=== PATIENT | female | born 1985 | race Caucasian/White ===

== ENCOUNTER 2021-11-26 07:37 | Inpatient (IN) ==
[2021-11-26] MEDS ORDERED: OXYTOCIN 30 UNITS/500 ML BAG IV PRN ×2 (08:56→23:21)
[2021-11-26] MEDS ORDERED: miSOPROStoL 25 MCG TAB PV ONE (08:56)
[2021-11-26] MEDS ORDERED: LIDOCAINE 1% LOCAL 20 ML VIAL INFIL PRN (08:56)
[2021-11-26] MEDS ORDERED: LACTATED RINGER'S 1,000 ML IV PRN (08:56)
[2021-11-26 09:29] LABS: Hematocrit (blood only) 34.7 % (34.1-44.9); Hemoglobin 11.7 g/dl (12.0-16.0); Mean Corpuscular Hgb Conc 33.7 g/dL (32.0-36.0); Mean Corpuscular Volume 86.1 fL (80.0-100.0); Mean Platelet Volume 10.4 fL (9.4-12.3); Platelet Count 262 K/uL (130-400); RDW Standard Deviation 38.1 fL (36.4-46.3); Red Blood Count 4.03 M/uL (3.93-5.22); White Blood Count 7.98 K/ul (4.8-10.8)
--- NOTE | 2021-11-26 09:30 | Obstetrical Progress Note ---
Date of Service November 26, 2021 Assessment & Plan (1) Elective induction of labor planned: Plan: induction of labor at 39 weeks Elevated BMI FHR ; CAT1 Ctx ; None VE; Cl/thick/post/-3 Bedside sono'; VT Plan Cytotec x1 Admission and Anticipated Discharge Date Admission Date: November 26, 2021 Results & Data ([facility]) Vital Signs (Past 12 Hours) Vital Signs Temp Pulse Resp BP 11/26/21 07:53 92 H 121/74 11/26/21 07:52 37.1 C 103 H 20 144/90 H
[2021-11-26] MEDS ORDERED: Nursing to Pharmacy Communication SCH (10:00)
[2021-11-26] MEDS: miSOPROStoL 50 MCG TAB PO SCH ×3 (10:10→18:32)
[2021-11-26] MEDS ORDERED: miSOPROStoL 50 MCG TAB PO SCH (12:00)
[2021-11-26] MEDS ORDERED: DINOPROSTONE 10 MG INSERT PV ONE (18:30)
--- NOTE | 2021-11-26 19:45 | Labor Progress Brief Note ---
Date of Service November 26, 2021 Assessment & Plan (1) Elective induction of labor planned: Plan: Induction Day #1 2 doses of Cytotec given Pt doing well FHR; CAT1 Ctx. minimal VE 1-2/50/-3 Cervidil #1 placed Admission and Anticipated Discharge Date Admission Date: November 26, 2021 Results & Data ([facility]) Vital Signs (Past 12 Hours) Vital Signs Temp Pulse Resp BP 11/26/21 19:00 36.8 C 18 11/26/21 19:00 18 11/26/21 18:57 92 H 109/65 11/26/21 18:36 106 H 113/82 11/26/21 17:49 88 114/75 11/26/21 16:29 96 H 120/81 11/26/21 14:50 16 11/26/21 14:50 36.8 C 16 11/26/21 14:49 93 H 126/94 11/26/21 11:30 37.1 C 82 20 116/82 11/26/21 07:53 92 H 121/74 11/26/21 07:52 37.1 C 103 H 20 144/90 H
--- NOTE | 2021-11-26 23:21 | Labor Progress Brief Note ---
Date of Service November 26, 2021 Assessment & Plan (1) Elective induction of labor planned: Plan: Pt poorly tolerated Cervidil Cervidil is removed FHR; CAT1 Ctx; 2-3 mins VE 3-4/50/-3 Request epidural analgesia Admission and Anticipated Discharge Date Admission Date: November 26, 2021 Results & Data ([facility]) Vital Signs (Past 12 Hours) Vital Signs Temp Pulse Resp BP 11/26/21 19:00 36.8 C 18 11/26/21 19:00 18 11/26/21 21:41 88 119/78 11/26/21 18:57 92 H 109/65 11/26/21 18:36 106 H 113/82 11/26/21 17:49 88 114/75 11/26/21 16:29 96 H 120/81 11/26/21 14:50 16 11/26/21 14:50 36.8 C 16 11/26/21 14:49 93 H 126/94 11/26/21 11:30 37.1 C 82 20 116/82
[2021-11-26] MEDS ORDERED: ePHEDrine sulfate 50 MG/ML AMP ONE (23:22)
[2021-11-26] MEDS ORDERED: fentaNYL citrate 100 MCG/2 ML VIAL ONE (23:22)
[2021-11-26] MEDS ORDERED: BUPIVACAINE 0.25% 30 ML VIAL ONE (23:22)
[2021-11-26] MEDS ORDERED: SODIUM CHLORIDE 0.9% INJ 10 ML VIAL ONE (23:22)
[2021-11-26] MEDS ORDERED: LIDOCAINE 2%/EPINEPHRINE 1:200,000 20 ML SDV ONE (23:22)
[2021-11-26] MEDS ORDERED: fentaNYL 2MCG/ML ROPIVACAINE 1.25MG/ML 100 ML BAG EPI ONE (23:23)
--- NOTE | 2021-11-26 23:51 | Anesthesiology Consultation ---
Date of Service November 26, 2021 Assessment & Plan Chart Review Chart Review: Acceptable Risk for Surgery and Acceptable Risk for Labor Epidural Consults Requested none ASA ASA2 Proposed Anesthesia Anesthesia Type: Labor Epidural Risk / Benefits Reviewed With: PT / POA / Parent / Guardian, Accepts Plan and Informed Consent Obtained History Height/Weight Height: 5 ft 7 in Weight: 116.573 kg Allergies Allergy/AdvReac Type Severity Reaction Status Date / Time No Known Allergies Allergy Unverified 11/26/21 07:58 Medications Home Medications Medication Instructions Recorded Confirmed Last Taken aspirin 81 mg chewable tablet 81 mg PO DAILY 11/26/21 11/26/21 11/26/21 05:45 budesonide 180 mcg/actuation 1 inh inhalation BID 11/26/21 11/26/21 11/26/21 05:45 breath activated powder inhaler (Pulmicort Flexhaler) fluticasone propionate 50 1 spray intranasal DAILY 11/26/21 11/26/21 11/26/21 07:00 mcg/actuation nasal spray,suspension iron,carbonyl 65 mg-vitamin C 125 1 tab PO HS 11/26/21 11/26/21 11/25/21 21:00 mg tablet,delayed release (Vitron-C) mecobalamin (vitamin B12) 1,000 1,000 mcg PO DAILY 11/26/21 11/26/21 11/26/21 05:45 mcg chewable tablet (B12 Active) prenat.vits,tanya,tgj-cpwm-bslkg 1 tab PO DAILY 11/26/21 11/26/21 11/26/21 05:45 Active Medications Generic Name Dose Route Start Last Admin Trade Name Alyssa PRN Reason Stop Dose Admin Lactated Ringer's 1,000 mls @ 125 mls/hr 11/26/21 08:56 11/26/21 23:34 Lr IV 11/28/21 08:55 125 mls/hr .Q8H PRN Administration L&D Protocol Protocol Misoprostol 50 mcg 11/26/21 10:15 11/26/21 18:32 Misoprostol 50 Mcg Tab PO 12/26/21 10:14 Not Given Q4H ANTIONETTE NPO Date Last Intake of Fluids: 11/26/21 Time Last Intake of Fluids: 23:00 Date Last Intake of Solids: 11/26/21 Time Last Intake of Solids: 17:00 Past Medical History Medical History (Updated 11/26/21 @ 23:50 by Roxana Lowery DO) Asthma Exercise / Class Metabolic Activity II 4-5 Yardwork/Stairs/Walk up hill Past Surgical History Surgical History History of cholecystectomy History of sinus surgery Hx of LASIK Past Anesthesia History No Hx of Anesthesia Complications and No Family Hx of Anesthesia Complications History of PONV No Hx of PONV and No Hx of Motion Sickness Social History Smoking Status: Never smoker Hx Alcohol Use: No Hx Substance Use: No substance use type: does not use Physical Exam Vital Signs Last Vital Signs Temp 36.8 C 11/26/21 19:00 Pulse 85 11/26/21 23:44 Resp 18 11/26/21 19:00 BP 119/78 11/26/21 21:41 Pulse Ox 100 11/26/21 23:44 ENMT Mouth: no TMJ abnormality Thyromental Distance: > or= 3.5 Finger Breadths Mallampati Class: II Neck normal visual inspection and trachea midline; neck extension not limited Respiratory normal respiratory effort Auscultation: lungs clear to auscultation bilaterally Cardiovascular Rate/Rhythm: regular rate and regular rhythm Heart Sounds: no murmur Musculoskeletal Spine: normal cervical ROM Extremities: full ROM of extremities Neurologic moves all extremities Psychiatric Orientation: alert and oriented x 3 Testing Laboratory Results 11/26/21 09:15 Blood Type AB Positive 11/26/21 09:15 Antibody Screen NEGATIVE 11/26/21 09:15
[2021-11-27] MEDS ORDERED: NALBUPHINE HCL INJ 10 MG/ML AMP IV PRN (00:12)
[2021-11-27] MEDS ORDERED: ONDANSETRON INJ 2 MG/ML 2 ML VIAL IV PRN (00:12)
[2021-11-27] MEDS ORDERED: diphenhydrAMINE 50 MG/ML VIAL IV PRN (00:12)
[2021-11-27] MEDS ORDERED: METOCLOPRAMIDE HCL 20 MG in SODIUM CHLORIDE 0.9% 50 ML IV PRN (00:12)
[2021-11-27] MEDS ORDERED: NALOXONE HCL 0.4 MG/1 ML VIAL/CARP IV PRN (00:12)
[2021-11-27] MEDS ORDERED: PROMETHAZINE HCL 25 MG in SODIUM CHLORIDE 0.9% 50 ML IV PRN (00:12)
[2021-11-27] MEDS ORDERED: ePHEDrine sulfate 50 MG/ML AMP IV PRN (00:12)
[2021-11-27] MEDS ORDERED: NALOXONE HCL 1 MG in SODIUM CHLORIDE 0.9% 1000ML 1,000 ML IV PRN (00:12)
[2021-11-27] MEDS ORDERED: fentaNYL 2MCG/ML ROPIVACAINE 1.25MG/ML 100 ML BAG EPI PRN (00:12)
[2021-11-27] MEDS ORDERED: TERBUTALINE SULFATE 1 MG/ML VIAL ONE (03:02)
--- NOTE | 2021-11-27 03:19 | Obstetrical Progress Note ---
Date of Service November 27, 2021 Assessment & Plan (1) Elective induction of labor planned: Plan: Called to evaluate pt with recurrent deep variable decels On arrival , pt has decels into the 80;s Oxygen mask was on VE; 5cm with bulging membranes. - Amnio hook used to AROM-clear fluid is noted FSE is placed . Early and late decels are noted with ctx. SQ Turb. is given and FH is improved. FH now show early decels with ctx Plan Expectant management for now Admission and Anticipated Discharge Date Admission Date: November 26, 2021 Results & Data ([facility]) Vital Signs (Past 12 Hours) Vital Signs Temp Pulse Resp BP Pulse Ox 11/26/21 19:00 36.8 C 18 11/26/21 19:00 18 11/27/21 03:09 103 H 99 11/27/21 03:04 108 H 100 11/27/21 02:59 99 H 100 11/27/21 02:58 102 H 20 122/65 11/27/21 02:54 98 H 99 11/27/21 02:49 87 98 11/27/21 02:44 87 100 11/27/21 02:43 75 124/69 11/27/21 02:39 81 100 11/27/21 02:34 93 H 99 11/27/21 02:29 91 H 100 11/27/21 02:24 81 100 11/27/21 02:19 71 100 11/27/21 02:14 74 99 11/27/21 02:09 75 100 11/27/21 02:04 78 98 11/27/21 01:59 99 11/27/21 01:59 82 11/27/21 01:59 89 113/61 11/27/21 01:54 75 98 11/27/21 01:49 74 98 11/27/21 01:44 71 98 11/27/21 01:43 72 104/60 11/27/21 01:39 69 98 11/27/21 01:34 72 98 11/27/21 01:29 72 99 11/27/21 01:28 78 109/63 11/27/21 01:24 81 99 11/27/21 01:19 80 94 11/27/21 01:17 78 94 11/27/21 01:14 78 112/68 96 11/27/21 01:11 36.8 C 79 18 94 11/27/21 01:09 87 96 11/27/21 01:05 79 94 11/27/21 01:04 78 95 11/27/21 00:59 81 94 11/27/21 00:58 86 105/59 L 94 11/27/21 00:54 85 96 11/27/21 00:53 84 94 11/27/21 00:49 80 94 11/27/21 00:44 86 94 11/27/21 00:43 82 106/55 L 11/27/21 00:30 16 11/27/21 00:30 16 11/27/21 00:39 94 11/27/21 00:39 89 11/27/21 00:39 85 94 11/27/21 00:34 84 94 11/27/21 00:10 18 11/27/21 00:10 18 11/27/21 00:32 79 94 11/27/21 00:29 90 96 11/27/21 00:27 88 112/58 L 11/27/21 00:26 83 94 11/27/21 00:24 92 H 95 11/27/21 00:21 85 94 11/27/21 00:20 86 105/56 L 11/27/21 00:19 88 94 11/27/21 00:18 85 109/58 L 11/27/21 00:16 86 103/55 L 11/27/21 00:14 87 95 11/27/21 00:15 92 H 16 105/51 L 94 11/27/21 00:09 92 H 95 11/27/21 00:08 91 H 94 11/27/21 00:07 92 H 99/68 L 11/27/21 00:04 95 H 98 11/27/21 00:05 94 H 18 106/70 11/26/21 23:59 87 97 11/26/21 23:54 103 H 97 11/26/21 23:52 92 H 93 11/26/21 23:49 92 H 97 11/26/21 23:44 85 100 11/26/21 23:39 87 97 11/26/21 23:34 97 11/26/21 23:34 102 H 11/26/21 23:34 105 H 94 11/26/21 23:27 91 H 96 11/26/21 21:41 88 119/78 11/26/21 18:57 92 H 109/65 11/26/21 18:36 106 H 113/82 11/26/21 17:49 88 114/75 11/26/21 16:29 96 H 120/81
[2021-11-27 06:02] LABS: Base Excess Cord Venous Blood -2.4 mEq/L (-7.7-1.9); Cord Venous Blood HCO3 24 mmol/L (18.4-26.8); Cord Venous Blood PCO2 45 mmHg (30.4-57.2); Cord Venous Blood PO2 28 mmHg (14.1-43.3); Cord Venous Blood pH 7.33 (7.20-7.44); O2 Saturation Cord Venous Bld < 60.0 % (<68)
[2021-11-27] MEDS ORDERED: IBUPROFEN 600 MG TAB PO ONE (06:24)
[2021-11-27] MEDS ORDERED: OXYTOCIN 30 UNITS/500 ML BAG IV PRN (06:38)
[2021-11-27] MEDS ORDERED: ACETAMINOPHEN 325 MG TAB PO PRN (06:38)
[2021-11-27] MEDS ORDERED: HYDROCORTISONE ACETATE 25 MG SUPP PR PRN (06:38)
[2021-11-27] MEDS ORDERED: bisacodyL 10 MG SUPP PR PRN (06:38)
[2021-11-27] MEDS ORDERED: DIPHTHERIA/TETANUS/PERTUSSIS 0.5 ML SYR/VIAL IM ONE (06:38)
[2021-11-27] MEDS ORDERED: BENZOCAINE 20% AER SPR 82.5 GM CAN EXT PRN (06:38)
--- NOTE | 2021-11-27 07:12 | Delivery Summary ---
DELIVERY NOTE: The patient delivered a live infant in left occiput anterior presentation. There was cord around both ankles. Cord was clamped and cut and was handed over to the waiting pediatr ic team. Weight and Apgars in the pediatric record. Cord blood, cord gases were obtained. Placenta was spontaneously delivered. Inspection of the perineum showed a second-degree midline laceration w ith a sulcus tear. This was repaired with 2-0 Vicryl in layers. Rectal exam post-repair showed good sphincter tone and no sutures palpated in the rectum. Estimated blood loss was 550 mL. Baby and mother are doing well in recovery. All instruments were removed from the vagina and accounted for x2 including sponges, needles, and ret ractors. Job ID: [id number]
[2021-11-27] MEDS: PRENATAL VITAMIN 1 TAB PO SCH (07:37)
[2021-11-27] MEDS: DOCUSATE SODIUM 100 MG CAP PO SCH ×2 (07:37→20:33)
--- NOTE | 2021-11-27 08:36 | Anesthesia Procedure Note ---
Date of Service November 27, 2021 Anesthesia Post Epidural Note Vital Signs Vital Signs: Temp Pulse Resp BP Pulse Ox O2 Del Method 36.5 C 80 16 114/80 99 11/29/21 09:11/29/21 09:11/29/21 09:11/29/21 09:11/29/21 09:11/29/21 09:00 Pain Intensity Abdomen: Pain Intensity: 0 Episiotomy/Laceration: Pain Intensity: 2 Notes Mental Status: alert / awake / arousable Nausea / Vomiting: adequately controlled Pain: adequately controlled Airway Patency, RR, SpO2: stable & adequate BP & HR: stable & adequate Hydration State: stable & adequate Neuraxial Anesthesia: was administered and sensory block is resolving Anesthetic Complications: no major complications apparent and Pt Satisfied with anesthetic care Epidural: Removed without complications and With tip intact
[2021-11-27] MEDS: IBUPROFEN 600 MG TAB PO PRN ×4 (10:15→23:49)
[2021-11-28] MEDS: IBUPROFEN 600 MG TAB PO PRN ×5 (03:39→21:25)
[2021-11-28 07:14] LABS: Hematocrit (blood only) 27.1 % (34.1-44.9); Hemoglobin 8.9 g/dl (12.0-16.0); Mean Corpuscular Hemoglobin 28.8 pg (25.0-34.0); Mean Corpuscular Hgb Conc 32.8 g/dL (32.0-36.0); Mean Corpuscular Volume 87.7 fL (80.0-100.0); Mean Platelet Volume 10.1 fL (9.4-12.3); Platelet Count 234 K/uL (130-400); RDW Coefficient of Variation 12.1 % (11.5-14.5); RDW Standard Deviation 38.7 fL (36.4-46.3); Red Blood Count 3.09 M/uL (3.93-5.22); White Blood Count 11.04 K/ul (4.8-10.8)
[2021-11-28] MEDS: DOCUSATE SODIUM 100 MG CAP PO SCH ×2 (08:24→19:49)
[2021-11-28] MEDS: PRENATAL VITAMIN 1 TAB PO SCH (08:24)
--- NOTE | 2021-11-28 08:34 | Obstetrical Progress Note ---
Date of Service November 28, 2021 Assessment & Plan (1) Normal course: PPD #1 pt doing well stable labs anticipate disch tomorrow Results & Data ([facility]) Vital Signs (Past 12 Hours) Vital Signs Temp Pulse Resp BP Pulse Ox O2 Del Method 11/28/21 03:49 36.6 C 70 18 112/77 98 Room Air 11/27/21 23:55 36.5 C 71 18 108/74 96 Room Air
[2021-11-28] MEDS ORDERED: bisacodyL 5 MG TABEC PO SCH (20:00)
[2021-11-29] MEDS: IBUPROFEN 600 MG TAB PO PRN ×2 (06:30→10:35)
--- NOTE | 2021-11-29 06:48 | Obstetrical Progress Note ---
Date of Service November 29, 2021 Assessment & Plan (1) Normal course: PPD #2 pt doing well d/c home with instrcution Subjective Ambulation: ambulating normally Voiding: no voiding problems Passing Gas:: Yes Diet Tolerance:: regular diet Lochia:: Small Feeding Type:: breast feeding Review of Systems All systems reviewed & are unremarkable except as noted in HPI & below Physical Exam Constitutional WD/WN, vitals as above well developed and well nourished Eyes PERRL, conjunctivae normal, anicteric sclerae Neck trachea midline, no thyromegaly Respiratory normal respiratory effort, lungs clear to auscultation Auscultation: no crackles, no rales and no wheezes Cardiovascular RRR, no murmur, no edema Gastrointestinal (Abdomen) normal bowel sounds, soft, nontender, no hepatosplenomegaly Uterus is below umbilicus Musculoskeletal no cyanosis or clubbing, extremities motor strength 5/5 Skin no rashes, warm and dry Neurologic patellar DTR's 2+ bilat, sensation intact Psychiatric A+Ox3, euthymic affect Genitourinary normal external appearance Results & Data ([facility]) Vital Signs (Past 12 Hours) Vital Signs Temp Pulse Resp BP Pulse Ox O2 Del Method 11/29/21 04:50 36.5 C 72 18 110/76 96 Room Air 11/28/21 19:59 Room Air 11/28/21 19:59 36.5 C 77 18 104/71 97 Room Air
[2021-11-29 08:44] LABS: Hematocrit (blood only) 28.6 % (34.1-44.9); Hemoglobin 9.4 g/dl (12.0-16.0)
[2021-11-29] MEDS: PRENATAL VITAMIN 1 TAB PO SCH (08:56)
[2021-11-29] MEDS: DOCUSATE SODIUM 100 MG CAP PO SCH (08:56)
== END 2021-11-29 12:09 | disposition home or self-care (01) | DRG 807 ==
LOC: 4S1 07:37 → 4E2 11-27 08:14